=== PATIENT | female | born 1990 | race Two or more races ===

== ENCOUNTER 2021-05-23 13:34 | Emergency (ER) | payer OTHER ==
[~2021-05-23] VITALS: Ht 160 cm; Wt 54.4 kg
[2021-05-23] MEDS ORDERED: NORFLEX100MG PO (18:58)
[2021-05-23] MEDS ORDERED: IBU800 MG PO (18:58)
== END 2021-05-23 19:04 | disposition home or self-care (01) ==
LOC: ER 13:34
DX: R07.81 Pleurodynia (principal)